=== PATIENT | female | born 1945 | race Caucasian/White ===

== ENCOUNTER → 2017-08-28 | Outpatient (CLI) | payer OTHER | LOC: CAT 11:24 | DX: R91.8 Other nonspecific abnormal finding of lung field (principal); I89.8 Other specified noninfective disorders of lymphatic vessels and lymph nodes; I25.10 Atherosclerotic heart disease of native coronary artery without angina pectoris ==

== ENCOUNTER → 2017-11-24 | Outpatient (CLI) | payer OTHER | LOC: CAT 11-21 16:03 | DX: I73.9 Peripheral vascular disease, unspecified (principal); R91.1 Solitary pulmonary nodule; R91.8 Other nonspecific abnormal finding of lung field ==